=== PATIENT | female | born 1955 ===

== ENCOUNTER 2017-12-15 09:46 | Emergency (ER) | payer OTHER ==
[2017-12-15] MEDS ORDERED: Ofloxacin 0.3% Otic Soln AU STA (10:14)
[2017-12-15 10:17] VITALS: BP 119/77; PULSE 103; RESP 18; TEMP 98.1; O2SAT 97
--- NOTE | 2017-12-15 10:54 | C.PDOC ---
History Of Present Illness 62 y/o female presents to the ER complaining of left ear pain which has been present for the past 3 days. Patient states that used drops which were prescribed earlier by her PCP, Dr. Armendariz. The drops were actually eye drops and she had no relief with the drops. Denies having drainage, bleeding, fever, chills, neck pain, and and neck stiffness. Time Seen by Provider: 12/15/17 10:01 Chief Complaint (Nursing): ENT Problem History Per: Patient History/Exam Limitations: None Onset/Duration Of Symptoms: Days Current Symptoms Are (Timing): Still Present Severity: Moderate Past Medical History Reviewed: Historical Data, Nursing Documentation, Vital Signs Vital Signs: Last Vital Signs Temp 98.1 F 12/15/17 09:53 Pulse 103 H 12/15/17 09:53 Resp 18 12/15/17 09:53 BP 119/77 12/15/17 09:53 Pulse Ox 97 12/15/17 11:34 - Medical History PMH: Depression, HTN Other Surgeries: Hx of surgeries Family History: States: No Known Family Hx - Social History Hx Alcohol Use: No Hx Substance Use: No - Immunization History Hx Tetanus Toxoid Vaccination: Yes Hx Influenza Vaccination: Yes Hx Pneumococcal Vaccination: Yes Review Of Systems Except As Marked, All Systems Reviewed And Found Negative. Constitutional: Negative for: Fever, Chills ENT: Positive for: Ear Pain (left ear pain). Negative for: Ear Discharge Musculoskeletal: Negative for: Neck Pain Physical Exam - Physical Exam Appears: Non-toxic, No Acute Distress Skin: Normal Color, Warm, Dry Head: Atraumatic, Normacephalic Eye(s): bilateral: Normal Inspection Ear(s): Left: Other (edema in canal, red and irritated, some purulent discharge ), Right: Normal Nose: Normal Oral Mucosa: Moist Neck: Supple Chest: Symmetrical Neurological/Psych: Oriented x3, Normal Speech ED Course And Treatment O2 Sat by Pulse Oximetry: 97 (RA) Pulse Ox Interpretation: Normal Medical Decision Making Medical Decision Making: Plan: --Floxin AU Disposition Counseled Patient/Family Regarding: Diagnosis, Need For Followup, Rx Given - Disposition Disposition: HOME/ ROUTINE Disposition Time: 10:51 Condition: STABLE Instructions: Ofloxacin (Otic), Outer Ear Infection (DC) Forms: [employer] ([place]orese) - POA Present On Arrival: None - Clinical Impression Clinical Impression: Otitis externa - Scribe Statement The provider has reviewed the documentation as recorded by the Scribe Lakisha Penn Provider Attestation: All medical record entries made by the Scribe were at my direction and personally dictated by me. I have reviewed the chart and agree that the record accurately reflects my personal performance of the history, physical exam, medical decision making, and the department course for this patient. I have also personally directed, reviewed, and agree with the discharge instructions and disposition.
== END 2017-12-15 11:08 | disposition home or self-care (01) ==
LOC: C.ER 09:46
DX: H60.90 Unspecified otitis externa, unspecified ear (principal); I10 Essential (primary) hypertension

== ENCOUNTER 2017-12-28 09:16 | Emergency (ER) | payer OTHER ==
[2017-12-28 09:36] VITALS: RESP 16; TEMP 98.6; O2SAT 97
[2017-12-28 09:52] LABS: SQUAMOUS EPITHIAL 1 /hpf (0-5); URINE BACTERIA RARE (<OCC); URINE BILIRUBIN NEGATIVE (NEGATIVE); URINE BLOOD 2+ (NEGATIVE); URINE COLOR Yellow (YELLOW); URINE GLUCOSE (UA) NORMAL (Normal); URINE LEUKOCYTE ESTERASE 2+ Leu/uL (Negative); URINE PROTEIN 2+ mg/dL (NEGATIVE); URINE UROBILINOGEN NORMAL mg/dL (0.2-1.0)
[2017-12-28 09:56] LABS: URINE CLARITY SLHAZY (Clear)
--- NOTE | 2017-12-28 10:14 | C.PDOC ---
History Of Present Illness 62 year old female presents to ED for evaluation of left ear pain, dysuria, and suprapubic pressure for the last few days. Patient states she had frequent urination last night. Requests refill for losartan, she admits she lost her insurance and has not seen her PMD because she has to pay felix. Denies fever, vomiting, diarrhea, and other associated symptoms. Time Seen by Provider: 12/28/17 09:34 Chief Complaint (Nursing): ENT Problem History Per: Patient Onset/Duration Of Symptoms: Days Current Symptoms Are (Timing): Still Present Past Medical History Reviewed: Historical Data, Nursing Documentation, Vital Signs Vital Signs: Last Vital Signs Temp 98.6 F 12/28/17 09:29 Pulse 74 12/28/17 10:20 Resp 16 12/28/17 10:20 BP 135/80 12/28/17 10:20 Pulse Ox 97 12/28/17 12:14 - Medical History PMH: Depression, HTN Family History: States: No Known Family Hx - Social History Hx Alcohol Use: No Hx Substance Use: No - Immunization History Hx Tetanus Toxoid Vaccination: Yes Hx Influenza Vaccination: Yes Hx Pneumococcal Vaccination: Yes Review Of Systems Constitutional: Negative for: Fever, Chills ENT: Positive for: Ear Pain (left ear pain ) Gastrointestinal: Negative for: Nausea, Vomiting Genitourinary: Positive for: Dysuria (suprapubic pressure ), Frequency Physical Exam - Physical Exam Appears: Non-toxic, No Acute Distress, Other (comfortable ) Skin: Warm, Dry Head: Atraumatic, Normacephalic Eye(s): bilateral: Normal Inspection, PERRL, EOMI Ear(s): Left: Other (loculated appearance of left TM, no discharge in ear canal , no erythema, hearing is normal), Right: Normal (no discharge in ear canal, no erythema, hearing is normal) Throat: Normal Chest: Symmetrical Cardiovascular: Rhythm Irregular Respiratory: Normal Breath Sounds, No Rales, No Rhonchi, No Stridor Gastrointestinal/Abdominal: Soft, Tenderness (mild suprapubic), No Guarding, No Rebound Neurological/Psych: Oriented x3, Normal Speech Gait: Steady ED Course And Treatment O2 Sat by Pulse Oximetry: 97 (RA) Pulse Ox Interpretation: Normal Progress Note: Progress: Given Cipro. Urine sent for cultures. Patient stable for discharge home. Prescribed Norvasc, Cipro, Losartan, and Crestor. Disposition Counseled Patient/Family Regarding: Diagnosis, Need For Followup, Rx Given - Disposition Referrals: [facility] [Outside] Piotr Chavez MD [Staff Provider] - Disposition: HOME/ ROUTINE Disposition Time: 10:15 Condition: STABLE Additional Instructions: FOLLOW UP IN THE MEDICAL CLINIC, ASK THEM FOR REFERRAL FOR DR CHAVEZ USE MEDICATIONS DIRECTED RETURN TO ER IF SYMPTOMS WORSEN Prescriptions: Ciprofloxacin [Cipro] 1 tab PO BID #14 tab Losartan [Cozaar] 25 mg PO DAILY #30 tab Forms: [employer] (Uzbek) Print Language: TURKISH - Clinical Impression Clinical Impression: UTI (urinary tract infection), Left ear pain, Medication refill - Scribe Statement The provider has reviewed the documentation as recorded by the Scribe (Priyanka Nicolas) Provider Attestation: All medical record entries made by the Scribe were at my direction and personally dictated by me. I have reviewed the chart and agree that the record accurately reflects my personal performance of the history, physical exam, medical decision making, and the department course for this patient. I have also personally directed, reviewed, and agree with the discharge instructions and disposition.
[2017-12-28 10:21] VITALS: BP 135/80; PULSE 74
== END 2017-12-28 10:23 | disposition home or self-care (01) ==
LOC: C.ER 09:16
DX: H92.02 Otalgia, left ear (principal); N39.0 Urinary tract infection, site not specified; Z76.0 Encounter for issue of repeat prescription; I10 Essential (primary) hypertension